=== PATIENT | female | born 1980 | race Caucasian/White ===

== ENCOUNTER → 2020-07-06 12:04 | Outpatient (CLI) | payer BC, SELFPAY ==
[2020-07-06 13:40] LABS: BUN Creatinine Ratio 15.9 (6-22); Blood Urea Nitrogen 11 mg/dL (7-17); Calcium 9.4 mg/dL (8.4-10.2); Carbon Dioxide 28 mmol/L (22-32); Chloride 103 mmol/L (98-107); Estimated Glomerular Filt Rate > 60.0 mL/min (>60); Glucose 84 mg/dL (70-100); HEMOLYSIS < 15 (0-50); Potassium 4.2 mmol/L (3.4-5.1); Sodium 136 mmol/L (137-145)
== END ==
PROVIDERS: Referring Provider Physician Assistant Medical; Visit Provider Physician Assistant Medical
DX: Z79.899 Other long term (current) drug therapy (principal)
CPT/HCPCS: 36415; 80048